=== PATIENT | male | born 1955 | race Caucasian/White ===

== ENCOUNTER → 2016-10-30 | Outpatient (CLI) | payer MEDICARE, OTHER ==
[2016-10-30 15:24] LABS: HIV SCRN NEGATIVE (NEGATIVE); HIV SCRN1 NEGATIVE (NEGATIVE)
[2016-10-30 15:25] LABS: CONTROL LINE INT CTR LINE PRESENT
== END ==
LOC: M LAB 11:14
PROVIDERS: ATTEND Family Medicine
DX: I10 Essential (primary) hypertension (principal)

== ENCOUNTER → 2016-12-24 | Outpatient (CLI) | payer MEDICARE, OTHER ==
--- NOTE | 2016-12-24 11:13 | ECGEPIP ---
Stationary ECG Study [facility] Test Date: 2016-12-24 Pat Name: BRIDGET DICK Department: Room: - Gender: M [employer]ator: THERESA : 1955 Requested By: Tigist Demarco Order Number: [id number] Reading MD: Giovanni Chavez Measurements Intervals [place] Rate: 63 P: -87 [place]: QRS: 46 QRSD: 180 T: 77 QT: 449 QTc: 463 Interpretive Statements NORMAL SINUS RHYTHM WITH FIRST-DEGREE AV BLOCK RIGHT BUNDLE BRANCH BLOCK NONSPECIFIC INFERIOR ST-T ABNORMALITY LAST TRACING ON 05/15/2015 AT 9:37:34, NO SIGNIFICANT CHANGES Electronically Signed On 12-24-2016 11:05:57 EDT by Giovanni Chavez
[2016-12-24 11:24] LABS: MEAN CORPUSCULAR HEMOGLOBIN 29.6 pg (27.0-33.0); MEAN CORPUSCULAR HGB CONC 33.3 g/dl (32.0-36.5); MEAN CORPUSCULAR VOLUME 88.9 fl (80.0-96.0); RED CELL DISTRIBUTION WIDTH 13.3 % (11.5-14.5); WHITE BLOOD COUNT 6.6 K/mm3 (4.0-10.0)
[2016-12-24 11:34] LABS: ALBUMIN 4.2 GM/DL (3.2-5.2); ALBUMIN/GLOBULIN RATIO 1.02 (1.00-1.93); ALKALINE PHOSPHATASE 65 U/L (45-117); ALT/SGPT 59 U/L (12-78); ANION GAP 10 MEQ/L (8-16); AST/SGOT 42 U/L (15-37); BILIRUBIN,TOTAL 0.7 MG/DL (0.2-1.0); BLOOD UREA NITROGEN 29 MG/DL (7-18); CALCIUM LEVEL 9.1 MG/DL (8.8-10.2); CARBON DIOXIDE LEVEL 29 MEQ/L (21-32); CHLORIDE LEVEL 98 MEQ/L (98-107); CHOLESTEROL LEVEL 225 MG/DL (<200); CREATININE FOR GFR 1.03 MG/DL (0.70-1.30); GLOMERULAR FILTRATION RATE > 60.0 (>49); GLUCOSE, FASTING 94 MG/DL (80-110); SODIUM LEVEL 137 MEQ/L (136-145); TOTAL PROTEIN 8.3 GM/DL (6.4-8.2); TRIGLYCERIDES LEVEL 59 MG/DL (<150)
--- NOTE | 2016-12-24 11:50 | REP ---
PA and lateral chest: Comparison is 05/15/2015. The lung potts are clear. Cardiac size is normal. The joy and mediastinum are unremarkable and unchanged. There is a left shoulder arthroplasty , unchanged. Impression: Essentially negative PA and lateral chest. Signed by Andre Bach MD 12/24/2016 11:41 A
== END ==
LOC: M LAB 10:15
PROVIDERS: ATTEND Family Medicine
DX: I10 Essential (primary) hypertension (principal); R53.83 Other fatigue; N40.0 Benign prostatic hyperplasia without lower urinary tract symptoms

== ENCOUNTER → 2017-04-23 | Outpatient (CLI) | payer MEDICARE, OTHER ==
[~2017-04-23] MED LIST: BIMA01SOL OU; BRIN1OPH OU; CART120C PO; CELE1CAP4 PO; CELE20TA PO; MULT1TAB10 PO; OMEP40CA2 PO; POTA99TA PO; TRIA37.5 PO; XANA0.5T PO
[2017-04-23 10:45] LABS: MEAN CORPUSCULAR HEMOGLOBIN 30.8 pg (27.0-33.0); MEAN CORPUSCULAR HGB CONC 33.7 g/dl (32.0-36.5); MEAN CORPUSCULAR VOLUME 91.2 fl (80.0-96.0); WHITE BLOOD COUNT 5.2 K/mm3 (4.0-10.0)
[2017-04-23 11:32] LABS: ALBUMIN 3.8 GM/DL (3.2-5.2); ALBUMIN/GLOBULIN RATIO 1.06 (1.00-1.93); ALKALINE PHOSPHATASE 61 U/L (45-117); ALT/SGPT 51 U/L (12-78); ANION GAP 6 MEQ/L (8-16); AST/SGOT 33 U/L (15-37); BILIRUBIN,TOTAL 0.6 MG/DL (0.2-1.0); BLOOD UREA NITROGEN 24 MG/DL (7-18); CALCIUM LEVEL 9.1 MG/DL (8.8-10.2); CARBON DIOXIDE LEVEL 30 MEQ/L (21-32); CHLORIDE LEVEL 102 MEQ/L (98-107); CHOLESTEROL LEVEL 192 MG/DL (<200); CREATININE FOR GFR 0.96 MG/DL (0.70-1.30); GLOMERULAR FILTRATION RATE > 60.0 (>49); GLUCOSE, FASTING 106 MG/DL (80-110); POTASSIUM SERUM 3.8 MEQ/L (3.5-5.1); SODIUM LEVEL 138 MEQ/L (136-145); TOTAL PROTEIN 7.4 GM/DL (6.4-8.2); TRIGLYCERIDES LEVEL 49 MG/DL (<150)
== END ==
LOC: M LAB 09:56
PROVIDERS: ATTEND Family Medicine
DX: Z01.818 Encounter for other preprocedural examination (principal); I10 Essential (primary) hypertension; N40.0 Benign prostatic hyperplasia without lower urinary tract symptoms

== ENCOUNTER → 2017-05-06 | Day surgery (SDC) | payer MEDICARE, OTHER ==
[~2017-05-06] VITALS: Ht 185.4 cm; Wt 101.6 kg
[~2017-05-06] MED LIST changes: +ACETAMINOPHEN 325 MG TAB PO PRN; +AcetaZOLAMIDE 500 MG ER CAP PO ONE; +BSS with VANC/TOB/EPI for EYE CASES IR ONE; +CEFUROXIME 1MG/0.1ML INTRACAMERAL INJ As Ordered ONE; +CYCLOPENTOLATE 2% OPHTH SOLN 2ML BTL OS ONE; +HEALON DUET (HEALON 10MG/ML 0.55ML & HEALON ENDOCOAT 30MG/ML 0.85ML) As Ordered ONE; +KETOROLAC 0.5% OPHTH SOLN OS ONE; +LIDOCAINE 1% SDV 5 ML VIAL As Ordered ONE; +LIDOCAINE 1% SDV 5 ML VIAL SC ONE; +LIDOCAINE 4% INJ 5 ML AMP OU ONE; +LR 500 ML IV ONE; +MIDAZOLAM INJ 2 MG/2 ML VIAL (J2250) As Ordered ONE; +OFLOXACIN 0.3 % (OCUFLOX) OPTH SOL 5ML OS ONE; +PHENYLEPHRINE 2.5% OPHTH SOL 2ML OS ONE; +POVIDONE-IODINE 5% OPHTH PREP SOL 30ML As Ordered ONE; +PROPARACAINE 0.5% OPHTH SOL 15ML OS PRN; +TRIMETHOBENZAMIDE 300 MG CAP PO PRN; +TROPICAMIDE 1% OPHTH SOLN 2ML OS ONE; +fentaNYL 100 MCG/2 ML INJECTION (J3010) As Ordered ONE
[2017-05-06 14:40] VITALS: BP 121/72
--- NOTE | 2017-05-07 19:40 | RO ---
DATE OF PROCEDURE: 05/06/2017 PREOPERATIVE DIAGNOSES: Cataract and glaucoma left eye. POSTOPERATIVE DIAGNOSES: Cataract and glaucoma left eye. PROCEDURE: Femtosecond laser with phacoemulsification and intraocular lens implantation PCB00 power 16 diopter along with endocyclophotocoagulation right eye and placement of the Glaukos iStent in the left eye. SURGEON: Gwen Christie MD DATA SCIENCES DIRECTOR: None. COMPLICATIONS: None. PROCEDURE IN DETAIL: The patient was brought to the operating room and laid in supine position. The left eye was prepped and draped in the sterile fashion for opthalmic surgery. The eye was first placed into the femtosecond laser and after adequate suction and patient interface placement, OCT was activated and after reviewing the images on OCT, laser was activated. Capsulorrhexis lens fragmentation, primary, secondary, corneal incisions and arcuate incisions were made according to plan. The suction was released and the patient was brought to the operating room and laid in supine position. The eye was prepped and draped in a sterile fashion for ophthalmic surgery. The lid speculum was placed. Side port and the temporal clear cornea incision were opened and EndoCoat was injected into the anterior chamber. Capsulorrhexis was removed and phacoemulsification was done in a divide and conquer method within the capsular bag followed by the aspiration of the cortical material Healon was then placed in capsular bag, intraocular lens placed. Healon was then placed in the ciliary sulcus and Endocyclophotocoagulation was done with the help of the Endo Probe visualizing on the video screen at .25 milliwatts 280 degrees were treated. Good reaction was noticed by shrinkage of the ciliary processes. Healon was then placed in the inferonasal trabecular meshwork area and under high mag with the patients head turned away from the surgeon and microscope turned towards the surgeon with the help of the Gonio lens the iStent was placed in the inferonasal quadrant. Good blood reflex was noted. Excess viscoelastic was aspirated and wound was hydrated and lid speculum removed and patient returned to the recovery room in stable condition after putting a 10-0 Nylon suture.
== END | disposition home or self-care (01) ==
LOC: M SDC 11:39
PROVIDERS: ATTEND Ophthalmology
DX: H25.9 Unspecified age-related cataract (principal); H40.812 Glaucoma with increased episcleral venous pressure, left eye; I10 Essential (primary) hypertension; K21.9 Gastro-esophageal reflux disease without esophagitis; N40.0 Benign prostatic hyperplasia without lower urinary tract symptoms; Z79.899 Other long term (current) drug therapy
CPT/HCPCS: 66183; 66711; 66984; C1783; J2250; J3010; V2632

== ENCOUNTER → 2018-04-05 | Outpatient (CLI) | payer MEDICARE, OTHER | LOC: M RAD 15:14 | DX: I11.9 Hypertensive heart disease without heart failure (principal) | CPT/HCPCS: 71046 ==

== ENCOUNTER → 2018-06-03 | Outpatient (CLI) | payer MEDICARE, OTHER ==
[2018-06-03 18:03] LABS: PSA SCREENING 1.49 NG/ML (< 4.0)
== END ==
LOC: M SMT 15:14
DX: Z12.5 Encounter for screening for malignant neoplasm of prostate (principal)
CPT/HCPCS: G0103